=== PATIENT | male | born 1950 | race African-American/Black ===

== ENCOUNTER 2017-01-12 11:39 | Inpatient (IN) | payer OTHER ==
[~2017-01-12] VITALS: Ht 175.3 cm; Wt 131.1 kg
[2017-01-12 11:40] VITALS: BP 156/71
[2017-01-12 12:14] LABS: ANION GAP 6 mmol/L (5-15); CALCIUM 9.1 MG/DL (8.5-10.1); CARBON DIOXIDE 32 MMOL/L (21-32); CHLORIDE 99 MMOL/L (98-107); CREATININE 0.9 MG/DL (0.55-1.30); GLOMERULAR FILTRATION RATE > 60 mL/min (>60); POTASSIUM 3.9 MMOL/L (3.5-5.1); SODIUM 137 MMOL/L (136-145)
[2017-01-12 12:15] LABS: BASOPHILS % (AUTO) 1.9 % (0.0-2.0); EOSINOPHILS % (AUTO) 2.2 % (0.0-3.0); MEAN CORPUSCULAR HEMOGLOBIN 32.4 PG (27.0-31.0); MEAN CORPUSCULAR HGB CONC 31.3 G/DL (32.0-36.0); MEAN CORPUSCULAR VOLUME 103 FL (80-99); MEAN PLATELET VOLUME 8.4 FL (6.5-10.1); NEUTROPHILS % (AUTO) 68.9 % (45.0-75.0); PLATELET COUNT 172 K/UL (150-450); RED BLOOD COUNT 5.47 M/UL (4.70-6.10); RED CELL DISTRIBUTION WIDTH 15.5 % (11.6-14.8)
[2017-01-12 12:30] LABS: ALANINE AMINOTRANSFERASE 22 U/L (12-78); ALBUMIN/GLOBULIN RATIO 0.6 (1.0-2.7); ASPARTATE AMINO TRANSFERASE 54 U/L (15-37); CKMB 13.8 NG/ML (0.0-3.6); TOTAL PROTEIN 7.9 G/DL (6.4-8.2)
[2017-01-12 12:32] LABS: BILIRUBIN,DIRECT 0.7 MG/DL (0.0-0.3)
[2017-01-12 13:13] VITALS: BP 174/82
[2017-01-12 13:17] LABS: APPEARANCE,URINE CLEAR; KETONES,URINE 2+ (NEGATIVE); LEUKOCYTE ESTERASE ,URINE 1+ (NEGATIVE); NITRITE,URINE NEGATIVE (NEGATIVE); PH,URINE 7 (4.5-8.0); PROTEIN,URINE 1+ (NEGATIVE); UROBILINOGEN,URINE 12 MG/DL (0.0-1.0)
[2017-01-12 13:28] LABS: BACTERIA,URINE FEW /HPF; SQUAMOUS EPITHELIAL CELL,UR FEW /LPF (NONE/OCC)
[2017-01-12] MEDS ORDERED: cefTRIAXone 1 GM in NS 55 ML IVPB ONE (13:45)
--- NOTE | 2017-01-12 13:45 | Emergency Room Report ---
History of Present Illness General Chief Complaint: Generalized Weakness Source: Patient Present Illness HPI 67-year-old male, history of hypertension diabetes, presenting with episode of generalized weakness. Patient states he lives by himself, try to do things around the house today, states that he felt very very weak and his legs went to get out. Did not fall or hit the floor, there is no LOC. Denies any fever chills nausea vomiting diarrhea chest pain or shortness of breath Allergies: Coded Allergies: No Known Allergies (Unverified , 01/12/17) Patient History Past Medical History: see triage record Past Surgical History: none Pertinent Family History: none Reviewed Nursing Documentation: PMH: Agreed, PSxH: Agreed Nursing Documentation-PMH Past Medical History: No History, Except For Hx Hypertension: Yes Hx Diabetes: Yes Review of Systems All Other Systems: negative except mentioned in HPI Physical Exam Vital Signs Date Time Temp Pulse Resp B/P (MAP) Pulse Ox O2 Delivery O2 Flow Rate FiO2 01/12/17 11:34 98.4 80 18 172/80 100 Room Air 01/12/17 11:40 2.0 Sp02 EP Interpretation: reviewed, normal General Appearance: alert, GCS 15, non-toxic, mild distress Head: normocephalic, atraumatic Eyes: bilateral eye normal inspection, bilateral eye PERRL, bilateral eye EOMI ENT: normal ENT inspection, normal pharynx, normal voice, moist mucus membranes Neck: normal inspection, full range of motion, supple Respiratory: normal inspection, lungs clear, normal breath sounds, no respiratory distress, no retraction, no wheezing, speaking full sentences, chest symmetrical Cardiovascular #1: normal inspection, regular rate, rhythm, no edema, normal capillary refill, edema Cardiovascular #2: 2+ radial (R), 2+ radial (L) Gastrointestinal: normal inspection, non tender, soft, non-distended, no guarding Musculoskeletal: normal inspection, back normal, normal range of motion, non- tender, other - +lymphedema b/l le Neurologic: normal inspection, alert, oriented x3, responsive, mine patrol III-XII nml as tested, motor strength/tone normal, sensory intact, normal gait, speech normal Psychiatric: normal inspection, judgement/insight normal, memory normal Skin: warm/dry, well hydrated, normal turgor Medical Decision Making Diagnostic Impression: Primary Impression: Episode of generalized weakness ER Course 67-year-old male with episode of generalized weakness DDX: Dehydration, infectious, UTI, pneumonia, cardiac, electrolyte disturbance Patient has good strength bilateral lower ext, consistent cord compression Plan: Obtain labs, ua, EKG, CXR ER course: Patient has been monitored during ED stay, HD stable Mild UTI found, ceftriaxone given Patient requires admission as still unable to ambulate, still feeling weak, and he lives by himself Disposition: Patient is to be admitted to [facility] D/W hospitalist Dr. Milner Please note that this Emergency Department Report was dictated using [employer] lecturer technology software, occasionally this can lead to erroneous entry secondary to interpretation by the dictation equipment. EKG Diagnostic Results EP Interpretation: Yes Rate: normal Rhythm: NSR ST Segments: No acute changes ASA given to patient: No Rhythm Strip EP Interpretation: Yes Rate: 80 Rhythm: NSR, no PVCs, no ectopy Chest X-ray CXR: Ordered: Yes 1 view Indication: Weakness EP interpretation: Yes Interpretation: Mild cardiomegaly Impression: Mild cardiomegaly Electronically signed by Syed Weldon MD Laboratory Tests Test 01/12/17 11:50 01/12/17 12:50 White Blood Count 9.0 K/UL (4.8-10.8) Red Blood Count 5.47 M/UL (4.70-6.10) Hemoglobin 17.7 G/DL (14.2-18.0) Hematocrit 56.6 % (42.0-52.0) H Mean Corpuscular Volume 103 FL (80-99) H Mean Corpuscular Hemoglobin 32.4 PG (27.0-31.0) H Mean Corpuscular Hemoglobin Concent 31.3 G/DL (32.0-36.0) L Red Cell Distribution Width 15.5 % (11.6-14.8) H Platelet Count 172 K/UL (150-450) Mean Platelet Volume 8.4 FL (6.5-10.1) Neutrophils (%) (Auto) 68.9 % (45.0-75.0) Lymphocytes (%) (Auto) 14.0 % (20.0-45.0) L Monocytes (%) (Auto) 13.0 % (1.0-10.0) H Eosinophils (%) (Auto) 2.2 % (0.0-3.0) Basophils (%) (Auto) 1.9 % (0.0-2.0) Sodium Level 137 MMOL/L (136-145) Potassium Level 3.9 MMOL/L (3.5-5.1) Chloride Level 99 MMOL/L (98-107) Carbon Dioxide Level 32 MMOL/L (21-32) Anion Gap 6 mmol/L (5-15) Blood Urea Nitrogen 6 mg/dL (7-18) L Creatinine 0.9 MG/DL (0.55-1.30) Estimate Glomerular Filtration Rate > 60 mL/min (>60) Glucose Level 97 MG/DL (74-106) Calcium Level 9.1 MG/DL (8.5-10.1) Total Bilirubin 2.1 MG/DL (0.2-1.0) H Direct Bilirubin 0.7 MG/DL (0.0-0.3) H Aspartate Amino Transferase (AST) 54 U/L (15-37) H Alanine Aminotransferase (ALT) 22 U/L (12-78) Alkaline Phosphatase 62 U/L (46-116) Total Creatine Kinase 936 U/L (26-308) H Creatine Kinase MB 13.8 NG/ML (0.0-3.6) H Creatine Kinase MB Relative Index 1.4 Troponin I 0.052 ng/mL (0.000-0.056) Pro-B-Type Natriuretic Peptide 865 pg/mL (0-125) H Total Protein 7.9 G/DL (6.4-8.2) Albumin 3.0 G/DL (3.4-5.0) L Globulin 4.9 g/dL Albumin/Globulin Ratio 0.6 (1.0-2.7) L Urine Color Brown Urine Appearance Clear Urine pH 7 (4.5-8.0) Urine Specific [place] 1.010 (1.005-1.035) Urine Protein 1+ (NEGATIVE) H Urine Glucose (UA) Negative (NEGATIVE) Urine Ketones 2+ (NEGATIVE) H Urine Occult Blood 1+ (NEGATIVE) H Urine Nitrite Negative (NEGATIVE) Urine Bilirubin Negative (NEGATIVE) Urine Urobilinogen 12 MG/DL (0.0-1.0) H Urine Leukocyte Esterase 1+ (NEGATIVE) H Urine RBC 2-4 /HPF (0 - 0) H Urine WBC 5-10 /HPF (0 - 0) H Urine Squamous Epithelial Cells Few /LPF (NONE/OCC) Urine Bacteria Few /HPF (NONE) Last Vital Signs Date Time Temp Pulse Resp B/P (MAP) Pulse Ox O2 Delivery O2 Flow Rate FiO2 01/12/17 13:13 97.9 82 18 174/82 94 Nasal Cannula 2.0 Disposition: ADMITTED INPATIENT Condition: Serious Scripts No Active Prescriptions or Reported Meds Referrals: ESREFERRING (PCP) Syed Weldon M.D. Jan 12, 2017 13:45
[2017-01-12 16:00] VITALS: BP 140/70
[2017-01-12 20:00] VITALS: BP 153/65
[2017-01-12] MEDS: Heparin 5000 units/ml inj SUBQ SCH (21:40)
[2017-01-13] VITALS (7 sets, daily range): BP systolic 123–143; BP diastolic 57–76
[2017-01-13] MEDS ORDERED: cefTRIAXone 1 GM in NS 55 ML IVPB ONE (04:00)
[2017-01-13 06:35] LABS: BASOPHILS % (AUTO) 2.5 % (0.0-2.0); EOSINOPHILS % (AUTO) 2.3 % (0.0-3.0); MEAN CORPUSCULAR HEMOGLOBIN 32.4 PG (27.0-31.0); MEAN CORPUSCULAR HGB CONC 30.6 G/DL (32.0-36.0); MEAN CORPUSCULAR VOLUME 106 FL (80-99); MEAN PLATELET VOLUME 8.3 FL (6.5-10.1); MONOCYTES % (AUTO) 12.7 % (1.0-10.0); NEUTROPHILS % (AUTO) 66.6 % (45.0-75.0); PLATELET COUNT 148 K/UL (150-450); RED BLOOD COUNT 5.24 M/UL (4.70-6.10); RED CELL DISTRIBUTION WIDTH 15.6 % (11.6-14.8); WHITE BLOOD COUNT 7.6 K/UL (4.8-10.8)
[2017-01-13] MEDS ORDERED: Albuterol/Ipratropium 3ml neb HHN PRN (06:45)
[2017-01-13 07:24] LABS: ALANINE AMINOTRANSFERASE 12 U/L (12-78); ALBUMIN/GLOBULIN RATIO 0.6 (1.0-2.7); ANION GAP 5 mmol/L (5-15); ASPARTATE AMINO TRANSFERASE 37 U/L (15-37); CARBON DIOXIDE 32 MMOL/L (21-32); CHLORIDE 103 MMOL/L (98-107); CREATININE 0.8 MG/DL (0.55-1.30); GLOMERULAR FILTRATION RATE > 60 mL/min (>60); POTASSIUM 4.2 MMOL/L (3.5-5.1); SODIUM 140 MMOL/L (136-145); TOTAL PROTEIN 6.9 G/DL (6.4-8.2)
[2017-01-13] MEDS: Heparin 5000 units/ml inj SUBQ SCH (08:32)
--- NOTE | 2017-01-13 09:00 | Diagnostic Imaging Report ---
Indication: Chest pain Technique: One view of the chest Comparison: none Findings: The heart is enlarged. There is borderline interstitial congestion. No focal airspace consolidation. No effusions. Impression: Cardiomegaly Borderline interstitial congestion-correlate with clinical findings
[2017-01-13 09:48] LABS: PSA TOTAL 0.84 ng/mL (0.13-4.0); THYROID STIMULATING HORMONE 0.548 uiU/mL (0.358-3.740)
--- NOTE | 2017-01-13 10:56 | Diagnostic Imaging Report ---
Indication: Shortness of breath Technique: One view of the chest Comparison: 01/12/2017 Findings: Patient is slightly rotated to the right. Heart is enlarged. Borderline interstitial congestive changes persist, stable. Impression: Unchanged, over one day, findings as above.
--- NOTE | 2017-01-13 13:15 | History & Physical ---
History and Physical History & Physicial dict poss COPD, cirrhosis? DENISE CAMPOS Jan 13, 2017 13:15
--- NOTE | 2017-01-13 14:24 | Diagnostic Imaging Report ---
INDICATION: ABD PAIN, chest pain, abdominal pain TECHNIQUE: Patient ingested oral contrast. IV administration nonionic contrast. Multiphasic spiral acquisitions obtained through the chest, abdomen, and pelvis Multiplanar reconstructions were generated. Total dose length product 2654 mGycm. CTDIvol(s) 8, 162, 22, 28 mGy. Radiation dose was minimized using automated exposure control COMPARISON: None FINDINGS Chest: Compressive atelectatic changes are seen at both lung bases. There is trace pleural fluid on the right. A small cystic space is seen superiorly in the right lower. Hyperinflation and small cystic spaces are seen in the upper lobes bilaterally. No acute infiltrate. There is a 3 mm irregular peripheral opacity in the left lower lobe, 47 series 6. The heart is borderline enlarged. The esophagus is mildly dilated, fluid-filled. The wall does not appear to be particularly thickened. No significant airway abnormality. No mediastinal or hilar mass or adenopathy. No axillary or chest wall mass or adenopathy. The bones are unremarkable Abdomen pelvis: The appendix is not definitely visualized. However, no findings to suggest acute appendicitis are evident. No small bowel distention. Contrast is seen throughout the entirety of the small bowel and to a slight extent within the colon proximally. No evidence of diverticulosis or diverticulitis. No free or loculated intraperitoneal air or fluid. There is a small fat-containing left inguinal hernia and perhaps a minimal fat-containing right inguinal hernia. The stomach is unremarkable. The liver, gallbladder, bile ducts, pancreas, spleen, adrenals, right kidney are unremarkable. Left kidney demonstrates a subcentimeter interpolar region 7 mm low-attenuation lesion which is too small to characterize. No retroperitoneal or mesenteric mass or adenopathy. No pelvic mass or adenopathy. The bones demonstrate minimal degenerative spondylosis changes IMPRESSION Pulmonary COPD changes Bilateral basilar compressive atelectatic changes. Trace right pleural effusion 3 mm peripheral opacity in the left lower lobe. If there is size risk for lung carcinoma, then further followup CT scan in 6-12 months is recommended. Is no significant risk factors, no further followup is necessary Borderline cardiomegaly Dilated fluid-filled esophagus. No definite distal esophageal mass. Nonspecific, could be related to esophageal dysmotility. No acute abdominal or pelvic process are subcentimeter low-attenuation left renal lesion which is too small to characterize, most likely benign simple cyst. Incidental finding mild degenerative spondylosis The CT scanner at [facility] is accredited by the [employer] and the scans are performed using protocols designed to limit radiation exposure to as low as reasonably achievable to attain images of sufficient resolution adequate for diagnostic evaluation.
--- NOTE | 2017-01-13 16:00 | History and Physical Report ---
DATE OF ADMISSION: 01/12/2017 Seen and dictated on 01/13/2017. CHIEF COMPLAINT: Weakness. HISTORY OF PRESENT ILLNESS: This 67-year-old man came to the hospital from home because he was too weak to stand up. He did not fall or injure himself, but called the paramedics. He was brought to the emergency department and admission was arranged. He was found to have edema and thought perhaps to be dehydrated because of high hemoglobin, but his BUN and creatinine are normal and he has been eating and drinking well. PAST MEDICAL HISTORY: The patient reports that he has been told that he has borderline hypertension and diabetes in the past, but does not currently take any medications. He has no history of cardiac disease to his knowledge. He has had peripheral edema for a long time. ALLERGIES: None. SOCIAL HISTORY: He drinks a six-pack per day and he smokes two packs of cigarettes daily. REVIEW OF SYSTEMS: Otherwise unremarkable. He has no chest pain. PHYSICAL EXAMINATION: GENERAL: Blood pressure was elevated, but has improved somewhat. He is alert and responds appropriately. He appears obese. HEENT: Head is normocephalic. NECK: No jugular venous distention. CHEST: Clear. CARDIAC: Rhythm is regular. ABDOMEN: Soft and nontender. Liver and spleen are not enlarged. EXTREMITIES: Chronic stasis changes with verrucous changes and 2+ edema in bilateral lower extremities. LABORATORY DATA: Laboratory studies show hemoglobin is 17.7. White count and platelet counts are normal. Chemistry shows BUN is 6 and creatinine is 0.9. Bilirubin is slightly elevated at 2.1, but repeat was 1.0. Liver enzymes slightly elevated, but repeat were normal. CPK is slightly elevated. Troponin normal. Natriuretic peptide 865. Albumin 2.5. PSA and TSH are normal. Urinalysis shows 5 to 10 white cells and elevated urobilinogen. IMPRESSION: 1. Generalized weakness. 2. Peripheral edema, possible congestive heart failure or liver disease. 3. Mild elevation of bilirubin and liver enzymes, possible cirrhosis given a heavy drinker. 4. Possible chronic obstructive pulmonary disease or sleep apnea with high hemoglobin, but no signs of dehydration. The saturation is 91% to 95% on 2 to 3 liters. PLAN: The patient will be transferred to telemetry to monitor his oxygen saturation. We will get a CT scan of the chest, abdomen, and pelvis in view of his heavy cigarette smoking history and peripheral edema. A cardiac ultrasound will be obtained. Silvestre Milner M.D. DR: SANYA JOB#: [id number] CC:
--- NOTE | 2017-01-13 17:59 | Cardiology Report ---
APPROVED REPORT EKG Measurement Heart [id number] Sinus rhythm with occasional premature ventricular complexes Biatrial enlargement Abnormal ECG
--- NOTE | 2017-01-13 18:20 | Cardiology Report ---
APPROVED REPORT EXAM: Two-dimensional and M-mode echocardiogram with Doppler and color Doppler. INDICATION Hypertension/HCVD M-Mode DIMENSIONS IVSd1.7 (0.7-1.1cm)Left Atrium (MM)5.7 (1.6-4.0cm) LVDd5.7 (3.5-5.6cm)Aortic Root2.6 (2.0-3.7cm) PWd1.1 (0.7-1.1cm)Aortic Cusp Exc.2.1 (1.5-2.0cm) LVDs3.6 (2.5-4.0cm) PWs1.2 cm Technically difficult study due to poor acoustical windows. Normal left ventricular chamber size, systolic function and wall motion to extent visualized. Left ventricular ejection fraction estimated to be 60-65%. Study quality precludes accurate assessment of regional wall motion. Mild left ventricular hypertrophy. No evidence of pericardial effusion. Moderate bi-atrial enlargement Moderate right ventricular enlargement with decreased function. Mild focal aortic valve sclerosis with adequate cusp excursion. Mildly thickened mitral valve leaflets with normal excursion. Mild mitral annulus and aortic root calcification. Pulmonic valve not well visualized. Normal tricuspid valve structure. IVC measured at 2.1 cm with physiologic collapse. A color flow and spectral Doppler study was performed and revealed: No aortic regurgitation. Mild mitral regurgitation. Mitral inflow velocities indicates possible pseudo normalization pattern implying moderately elevated left atrial pressure (Grade II ). Moderate tricuspid regurgitation. Tricuspid systolic velocities suggests peak right ventricular systolic pressure of 68 mmHg, consistent with severe pulmonary hypertension. No pulmonic regurgitation present.
[2017-01-14 00:09] VITALS: BP 148/79
[2017-01-14 04:00] VITALS: BP 150/71
[2017-01-14 08:00] VITALS: BP 125/70
[2017-01-14 08:20] LABS: BASOPHILS % (AUTO) 1.5 % (0.0-2.0); EOSINOPHILS % (AUTO) 2.6 % (0.0-3.0); LYMPHOCYTES % (AUTO) 17.2 % (20.0-45.0); MEAN CORPUSCULAR HGB CONC 29.9 G/DL (32.0-36.0); MEAN CORPUSCULAR VOLUME 107 FL (80-99); MEAN PLATELET VOLUME 8.4 FL (6.5-10.1); NEUTROPHILS % (AUTO) 63.7 % (45.0-75.0); PLATELET COUNT 142 K/UL (150-450); RED BLOOD COUNT 5.09 M/UL (4.70-6.10); RED CELL DISTRIBUTION WIDTH 14.9 % (11.6-14.8); WHITE BLOOD COUNT 7.5 K/UL (4.8-10.8)
[2017-01-14 08:47] LABS: ALANINE AMINOTRANSFERASE 16 U/L (12-78); ALBUMIN/GLOBULIN RATIO 0.5 (1.0-2.7); ANION GAP 2 mmol/L (5-15); ASPARTATE AMINO TRANSFERASE 25 U/L (15-37); CALCIUM 8.7 MG/DL (8.5-10.1); CARBON DIOXIDE 37 MMOL/L (21-32); CHLORIDE 98 MMOL/L (98-107); CREATININE 0.8 MG/DL (0.55-1.30); GLOMERULAR FILTRATION RATE > 60 mL/min (>60); POTASSIUM 4.4 MMOL/L (3.5-5.1); SODIUM 137 MMOL/L (136-145); TOTAL PROTEIN 6.9 G/DL (6.4-8.2)
[2017-01-14 12:00] VITALS: BP 130/72
--- NOTE | 2017-01-14 13:39 | Pulmonology Progress Note ---
Assessment/Plan Assessment/Plan 1. Generalized weakness. 2. Peripheral edema due to cor pulmonale. 3. Mild elevation of bilirubin and liver enzymes, no cirrhosis 4. COPD with high hemoglobin 5. Severe pulm HTN with cor pulmonale OT/PT HHN cardiology dc plan SNF Subjective Constitutional: Reports: fatigue Respiratory: Reports: shortness of breath Cardiovascular: Denies: chest pain Allergies: Coded Allergies: No Known Allergies (Unverified , 01/12/17) Objective Last 24 Hour Vital Signs Date Time Temp Pulse Resp B/P (MAP) Pulse Ox O2 Delivery O2 Flow Rate FiO2 01/14/17 12:00 97.7 75 19 130/72 95 Nasal Cannula 2.0 01/14/17 08:00 96.3 79 20 125/70 90 Nasal Cannula 2.0 01/14/17 07:45 79 18 Nasal Cannula 2.0 28 01/14/17 04:00 100.4 75 20 150/71 95 Room Air 01/14/17 03:55 91 01/14/17 00:09 99.0 82 20 148/79 96 Room Air 01/13/17 23:57 81 01/13/17 20:27 97.9 73 20 123/76 95 Room Air 01/13/17 20:21 70 01/13/17 16:16 98.1 75 20 139/67 97 Nasal Cannula 2.0 01/13/17 14:12 97.9 82 20 137/63 95 Nasal Cannula 3.0 General Appearance: no acute distress HEENT: anicteric Respiratory/Chest: rhonchi Cardiovascular: normal rate Abdomen: soft, non tender Extremities: other - 2+ edema Microbiology Date/Time Source Procedure Growth Status 01/12/17 19:00 Nasal Nares MRSA Culture - Final NO METHICILLIN RESISTANT STAPH AUREUS... Complete Laboratory Tests 01/14/17 07:10: White Blood Count 7.5, Red Blood Count 5.09, Hemoglobin 16.3, Hematocrit 54.5H, Mean Corpuscular Volume 107H, Mean Corpuscular Hemoglobin 32.0H, Mean Corpuscular Hemoglobin Concent 29.9L, Red Cell Distribution Width 14.9H, Platelet Count 142L, Mean Platelet Volume 8.4, Neutrophils (%) (Auto) 63.7, Lymphocytes (%) (Auto) 17.2L, Monocytes (%) (Auto) 15.0H, Eosinophils (%) (Auto ) 2.6, Basophils (%) (Auto) 1.5, Sodium Level 137, Potassium Level 4.4, Chloride Level 98, Carbon Dioxide Level 37H, Anion Gap 2L, Blood Urea Nitrogen 4L, Creatinine 0.8, Estimat Glomerular Filtration Rate > 60, Glucose Level 97, Calcium Level 8.7, Total Bilirubin 0.8, Aspartate Amino Transf (AST/SGOT) 25, Alanine Aminotransferase (ALT/SGPT) 16, Alkaline Phosphatase 50, Total Protein 6.9, Albumin 2.4L, Globulin 4.5, Albumin/Globulin Ratio 0.5L Current Medications Medications (Trade) Dose Ordered Sig/Paul Route PRN Reason Start Time Stop Time Status Last Admin Dose Admin Albuterol/ Ipratropium (Albuterol/ Ipratropium) 3 ml Q4H PRN HHN Shortness of Breath 01/13/17 06:45 01/18/17 06:44 DENISE CAMPOS Jan 14, 2017 13:39
[2017-01-14 16:00] VITALS: BP 140/73
[2017-01-14] MEDS: Albuterol/Ipratropium 3ml neb HHN SCH ×3 (16:09→23:00)
[2017-01-14 20:00] VITALS: BP 148/76
[2017-01-14] MEDS ORDERED: Tubing IV Secondary IV ONE (20:06)
[2017-01-15 00:30] VITALS: BP 152/81
[2017-01-15] MEDS: Albuterol/Ipratropium 3ml neb HHN SCH ×6 (03:00→23:32)
--- NOTE | 2017-01-15 04:00 | Consultation ---
DATE OF CONSULTATION: 01/14/2017 CARDIOLOGY CONSULTATION CONSULTING PHYSICIAN: Keny Moura M.D. REQUESTING PHYSICIAN: Silvestre Milner M.D. REASON FOR CONSULTATION: Pulmonary hypertension. HISTORY OF PRESENT ILLNESS: This is a 67-year-old male. He has had progressive leg swelling, weakness, and rashes that have rendered him mostly bedbound. He notes that he has had a change in his insurance for the past several months and has not had his usual medications for the last three months or so. He usually takes some pills that he thinks may have been diuretics as well, but has not had any recent. He had an echocardiogram here today that was notable for normal left ventricular ejection fraction, but severe right ventricular dysfunction and enlargement compounded with moderate biatrial enlargement, mild mitral regurgitation, moderate tricuspid regurgitation, and severe pulmonary hypertension with PA systolic pressure of 68 mmHg. Wall motion was difficult to assess. PAST MEDICAL HISTORY: Includes COPD and secondary polycythemia. ALLERGIES: None. SOCIAL HISTORY: Moderate alcohol with a 6-pack of beer daily and active smoker with two packs daily, giving him almost 80-pack year smoking history. FAMILY HISTORY: Noncontributory. REVIEW OF SYSTEMS: Otherwise unremarkable. PHYSICAL EXAMINATION: VITAL SIGNS: Blood pressure 148/76. Pulse 75. Respirations 20. Afebrile. Oxygen saturation on room air 78% to 96%. NECK: Supple and obese. LUNGS: With diminished breath sounds. No wheezing. CARDIAC: Distant S1 and S2 with regular rhythm and rate. No murmur. ABDOMEN: Obese and soft. EXTREMITIES: Reveal 3+ to 4+ brawny pitting edema with severe stasis derm changes and onychomycosis. LABORATORY AND DIAGNOSTIC DATA: White count 7.5, hemoglobin 16.3. BUN 4, creatinine 0.8, bicarbonate 37, and potassium 4.4. Albumin 2.4. EKG revealed sinus rhythm, occasional PVC, and biatrial enlargement. IMPRESSION: Severe pulmonary hypertension, etiology most likely right heart insufficiency and possible cor pulmonale in the setting of severe chronic obstructive pulmonary disease, pulmonary embolic event needs to be considered as well. RECOMMENDATIONS: It is difficult to manage isolated right heart failure. Diuresis will be re-initiated and anti-failure drugs cautiously titrated. Venous duplex scan as well as a D-dimer assessment will be obtained with consideration for a V/Q scan to follow. Podiatry intervention and DVT prophylaxis recommended. Keny Moura M.D. DR: ROWDY JOB#: [id number] CC:
[2017-01-15 04:21] VITALS: BP 146/77
[2017-01-15 08:56] VITALS: BP 139/61
[2017-01-15] MEDS ORDERED: DUONEB 0.5-3(2.53 ML HHN (11:23)
[2017-01-15] MEDS ORDERED: LASIX40 MG ORAL (11:23)
--- NOTE | 2017-01-15 11:27 | Discharge Summary ---
Discharge Summary Hospital Course Date of Admission Jan 12, 2017 at 14:59 Date of Discharge 01/15/17 Admitting Diagnosis general weakness HPI Miguel Jaimes is a 67 year old male who was admitted on Jan 12, 2017 at 14:59 for Generalized weakness Consultations cardiology Procedures no Hospital Course 1. Generalized weakness. 2. Peripheral edema due to cor pulmonale. 3. Mild elevation of bilirubin and liver enzymes, no cirrhosis 4. COPD with high hemoglobin 5. Severe pulm HTN with cor pulmonale improved w O2, HHN, lasix studies c/w COPD causing pulm HTN and edema DC to SNF Discharge Medications New Medications: Furosemide* (Lasix*) 40 Mg Tablet 40 MG ORAL DAILY, #30 TAB Ipratropium/Albuterol Sulfate (DuoNeb 0.5-3(2.5)mg/3ml) 3 Ml Ampul.neb 3 ML HHN Q4HRT, #120 EA Discharge Condition Upon Discharge: improving Discharge Disposition Patient was discharged to SNF Discharge Diagnoses: (1) COPD (chronic obstructive pulmonary disease) (2) Cor pulmonale, chronic (3) Polycythemia secondary to hypoxia (4) Episode of generalized weakness DENISE CAMPOS Jan 15, 2017 11:27
--- NOTE | 2017-01-15 12:25 | Wound Care Consultation ---
Wound Assessment Wound Assessment : Wound Number: 1 Wound Present on Admission: Yes New Wound: No Status Change of Wound: No Wound Location Body Site Modif: right, lower, medial Wound Location Body Site: leg Wound Type: other - chronic ulcer, Patel Test: Does not Patel Edema Degree: 4+ marked deep indentation Wound Thickness: Full Thickness Wound Length: 5.0 Wound Width: 1.0 Wound Depth: utd Percent of Wound [place]/Red: 70 Percent of Wound Black/Brown: 30 Other Colors Identified: 5.0cm x4.0cm indurated red skin Wound Drainage Description: Serosanguineous Wound Drainage Amount: Moderate Wound Drainage Odor: None/Absent Tissue Surrounding Wound: Indurated - lichenification with hemosiderin staining Wound General Appearance: Reddened, Blackened, Draining Wound Comment #1 right medial lower leg chronic ulcer. #2 Hemosiderin staining and lichenification, edema to both lower extremities. #3 right lower buttocks scar tissue 1.0cm x1.0cm Recommendation. - keep ulcer clean and dry., local wound care as ordered. -Offload affected area -Turn and reposition -Optimize nutrition. -Elevate lower extremities. -Asses and notify MD for further changes of condition to skin. ABBY MONTES DE OCA Jan 15, 2017 12:25
[2017-01-15 12:57] VITALS: BP 138/76
[2017-01-15 16:20] VITALS: BP 146/96
[2017-01-15 20:48] VITALS: BP 144/72
[2017-01-16] VITALS: BP 137/63
[2017-01-16] MEDS: Albuterol/Ipratropium 3ml neb HHN SCH ×3 (03:25→10:49)
[2017-01-16 04:00] VITALS: BP 156/72
--- NOTE | 2017-01-16 06:00 | Progress Note ---
DATE: 01/15/2017 CARDIOLOGY PROGRESS NOTE SUBJECTIVE: The patient still has shortness of breath with minimal activity and significant leg swelling. He has been started on diuretic therapy. A venous duplex scan was negative for DVT. D-dimers are pending. PHYSICAL EXAMINATION: VITAL SIGNS: Blood pressure 146/96, pulse 66, and respiratory rate 20. NECK: Supple. LUNGS: Clear. CARDIAC: Regular. Normal S1, S2. ABDOMEN: Soft. EXTREMITIES: With 3+ pitting edema. LABORATORY DATA: Pending. IMPRESSION: 1. Pulmonary hypertension. 2. Chronic venous insufficiency with lymphedema. 3. Acute on chronic diastolic congestive heart failure, right sided. 4. Severe protein-calorie malnutrition. 5. Probable component of nephrotic syndrome. PLAN: 1. Continue diuresis and losartan. 2. Followup D-dimers. If positive, consider VQ scan. 3. DVT prophylaxis. Keny Moura M.D. DR: MARNI JOB#: [id number] CC:
[2017-01-16 07:15] LABS: BASOPHILS % (AUTO) 1.7 % (0.0-2.0); EOSINOPHILS % (AUTO) 5.1 % (0.0-3.0); LYMPHOCYTES % (AUTO) 15.6 % (20.0-45.0); MEAN CORPUSCULAR HEMOGLOBIN 32.7 PG (27.0-31.0); MEAN CORPUSCULAR HGB CONC 30.7 G/DL (32.0-36.0); MEAN CORPUSCULAR VOLUME 107 FL (80-99); MEAN PLATELET VOLUME 7.9 FL (6.5-10.1); MONOCYTES % (AUTO) 17.9 % (1.0-10.0); NEUTROPHILS % (AUTO) 59.8 % (45.0-75.0); PLATELET COUNT 133 K/UL (150-450); RED BLOOD COUNT 4.86 M/UL (4.70-6.10); RED CELL DISTRIBUTION WIDTH 14.7 % (11.6-14.8); WHITE BLOOD COUNT 6.9 K/UL (4.8-10.8)
[2017-01-16 07:32] LABS: ANION GAP 1 mmol/L (5-15); CARBON DIOXIDE 37 MMOL/L (21-32); CHLORIDE 100 MMOL/L (98-107); CREATININE 0.8 MG/DL (0.55-1.30); GLOMERULAR FILTRATION RATE > 60 mL/min (>60); MAGNESIUM 1.7 MG/DL (1.8-2.4); POTASSIUM 4.7 MMOL/L (3.5-5.1); SODIUM 138 MMOL/L (136-145)
[2017-01-16 08:31] VITALS: BP 173/85
[2017-01-16] MEDS ORDERED: Losartan 50mg tab ORAL SCH ×2 (09:00→10:30)
--- NOTE | 2017-01-16 09:53 | Pulmonology Progress Note ---
Assessment/Plan Assessment/Plan 1. Generalized weakness. 2. Peripheral edema due to cor pulmonale. 3. Mild elevation of bilirubin and liver enzymes, no cirrhosis 4. COPD with high hemoglobin 5. Severe pulm HTN with cor pulmonale 6. HTN dc held for bed availability HHN losartan, lasix dc plan SNF Subjective Respiratory: Reports: shortness of breath Musculoskeletal: Reports: swelling Allergies: Coded Allergies: No Known Allergies (Unverified , 01/12/17) Objective Last 24 Hour Vital Signs Date Time Temp Pulse Resp B/P (MAP) Pulse Ox O2 Delivery O2 Flow Rate FiO2 01/16/17 08:31 97.0 65 20 173/85 95 Nasal Cannula 2.0 01/16/17 07:33 Nasal Cannula 01/16/17 07:33 Nasal Cannula 01/16/17 04:00 97.2 74 21 156/72 89 Nasal Cannula 2.0 01/16/17 04:00 73 01/16/17 03:26 72 20 98 Nasal Cannula 2.0 28 01/16/17 03:25 71 20 97 Nasal Cannula 2.0 28 01/16/17 00:00 71 01/16/17 00:00 98.1 81 23 137/63 91 Room Air 01/15/17 23:33 74 20 97 Nasal Cannula 2.0 28 01/15/17 23:32 70 20 96 Nasal Cannula 2.0 28 01/15/17 20:48 98.2 89 22 144/72 92 Room Air 01/15/17 20:00 78 20 96 Nasal Cannula 2.0 28 01/15/17 20:00 76 01/15/17 19:50 74 20 95 Nasal Cannula 2.0 28 01/15/17 16:20 98.4 68 20 146/96 100 Nasal Cannula 2.5 01/15/17 16:11 74 93 Nasal Cannula 3.0 01/15/17 16:01 68 98 Nasal Cannula 3.0 01/15/17 16:00 67 01/15/17 12:57 97.0 65 20 138/76 97 Nasal Cannula 2.5 01/15/17 12:00 66 01/15/17 11:27 61 98 Nasal Cannula 3.0 01/15/17 11:15 57 20 84 Room Air 21 Intake and Output 01/16/17 01/17/17 19:00 07:00 Intake Total 120 ml Balance 120 ml Intake Oral 120 ml General Appearance: no acute distress HEENT: atraumatic Respiratory/Chest: lungs clear Cardiovascular: normal rate Extremities: other - 2+ edema Laboratory Tests 01/16/17 05:15: White Blood Count 6.9, Red Blood Count 4.86, Hemoglobin 15.9, Hematocrit 51.7, Mean Corpuscular Volume 107H, Mean Corpuscular Hemoglobin 32.7H, Mean Corpuscular Hemoglobin Concent 30.7L, Red Cell Distribution Width 14.7, Platelet Count 133L, Mean Platelet Volume 7.9, Neutrophils (%) (Auto) 59.8, Lymphocytes (%) (Auto) 15.6L, Monocytes (%) (Auto) 17.9H, Eosinophils (%) (Auto ) 5.1H, Basophils (%) (Auto) 1.7, Sodium Level 138, Potassium Level 4.7, Chloride Level 100, Carbon Dioxide Level 37H, Anion Gap 1L, Blood Urea Nitrogen 10, Creatinine 0.8, Estimat Glomerular Filtration Rate > 60, Glucose Level 104, Calcium Level 9.0, Magnesium Level 1.7L Current Medications Medications (Trade) Dose Ordered Sig/Paul Route PRN Reason Start Time Stop Time Status Last Admin Dose Admin Albuterol/ Ipratropium (Albuterol/ Ipratropium) 3 ml Q4HRT HHN 01/14/17 15:00 01/19/17 14:59 01/16/17 03:25 Furosemide (Lasix) 40 mg DAILY IV 01/16/17 09:00 01/16/17 10:00 Furosemide (Lasix) 40 mg DAILY ORAL 01/17/17 09:00 02/16/17 08:59 Losartan Potassium (Cozaar) 50 mg DAILY ORAL 01/16/17 09:00 02/15/17 08:59 Magnesium Sulfate 100 ml @ 100 mls/hr Q1H IVPB 01/16/17 08:00 01/16/17 09:59 Nicotine (Nicoderm) 1 patch Q24H TDERMAL 01/16/17 09:45 02/15/17 09:44 DENISE FERREIRA Jan 16, 2017 09:53
[2017-01-16 11:47] VITALS: BP 147/72
--- NOTE | 2017-01-16 13:15 | Progress Note ---
DATE: 01/16/2017 CARDIOLOGY PROGRESS NOTE SUBJECTIVE: The patient has less shortness of breath, ongoing diuresis, leg swelling persists. PHYSICAL EXAMINATION: VITAL SIGNS: Blood pressure 156/72, pulse 73, and respiratory rate 18. LUNGS: Diminished breath sounds. HEART: Regular rhythm and rate. Normal S1, S2. ABDOMEN: Soft. EXTREMITIES: 3+ lower extremity edema. LABORATORY DATA: Magnesium 1.7. IMPRESSION: 1. Right heart insufficiency with severe lower extremity edema. 2. Acute on chronic diastolic congestive heart failure. 3. Hypomagnesemia. 4. Severe protein-calorie malnutrition. PLAN: IV magnesium. Transition to oral diuretics. DVT prophylaxis. Follow up results of D-dimer study. If positive, consider V/Q scan. Keny Moura M.D. DR: Montrell JOB#: [id number] CC:
[2017-01-17] MEDS ORDERED: Furosemide 40mg tab ORAL SCH (09:00)
--- NOTE | 2017-01-20 10:17 | Diagnostic Imaging Report ---
APPROVED REPORT CPT Code: 77567 Present Symptoms Shortness of breath Comments: Hx of lower leg ulcers Technically difficult study due to skin condition and body habitus ([id number] thigh and calf area). BILATERAL: Imaging reveals a patent deep venous system bilaterally. There is no evidence of thrombus within the femoral, and popliteal veins. The greater saphenous veins are also within normal limits. Doppler indicates normal spontaneous flow within these segments. The tibial veins not well visualized due to skin condition.
== END 2017-01-16 12:20 | DRG 314 ==
LOC: EDBD 11:39 → EMR 13:29 → EDBEDREQ 14:48 → 3E 14:59 → 2E 01-13 14:09
DX: I27.81 Cor pulmonale (chronic) (principal); I50.33 Acute on chronic diastolic (congestive) heart failure; E43 Unspecified severe protein-calorie malnutrition; D75.1 Secondary polycythemia; E83.42 Hypomagnesemia; I36.1 Nonrheumatic tricuspid (valve) insufficiency; I27.29 Other secondary pulmonary hypertension; I50.814 Right heart failure due to left heart failure; J44.9 Chronic obstructive pulmonary disease, unspecified; F17.200 Nicotine dependence, unspecified, uncomplicated; I34.0 Nonrheumatic mitral (valve) insufficiency; R53.1 Weakness; I87.2 Venous insufficiency (chronic) (peripheral); I89.0 Lymphedema, not elsewhere classified; R74.8 Abnormal levels of other serum enzymes; R09.02 Hypoxemia
CPT/HCPCS: 36415; 71010; 71260; 74177; 80048; 80053; 81003; 82248; 82550; 82553; 83735; 83880; 84153; 84443; 84484; 85025; 85362; 87081; 93005; 93306; 93970; 94640; 94664; 99285; J7620